=== PATIENT | male | born 1945 | race Caucasian/White ===

== ENCOUNTER 2017-10-08 11:06 | Emergency (ER) | payer OTHER ==
[2017-10-08 12:16] LABS: BASOPHIL % 0.5 % (0-2); PLATELET COUNT 273 x10^3mcL (130-400); RED CELL DISTRIBUTION WIDTH 13.9 % (11.5-14.5)
[2017-10-08 12:26] LABS: CALCIUM 9.7 mg/dL (8.5-10.1); CARBON DIOXIDE 36.3 mmol/L (21-32); CHLORIDE SERUM 98 mmol/L (98-107); CREATININE SERUM 0.8 mg/dL (0.7-1.3); GLUCOSE SERUM 118 mg/dL (74-106); POTASSIUM SERUM 3.6 mmol/L (3.5-5.1); SODIUM SERUM 142 mmol/L (136-145)
[2017-10-08 12:30] LABS: ALBUMIN 3.5 g/dL (3.4-5.0); ALKALINE PHOSPHATASE 82 U/L (46-116); ALT/SGPT 32 U/L (16-63); AST/SGOT 26 U/L (15-37); BILIRUBIN TOTAL 0.88 mg/dL (0.20-1.00); CHOLESTEROL 148 mg/dL (<200); HDL CHOLESTEROL 48 mg/dL (40-60); TOTAL PROTEIN, SERUM 7.9 g/dL (6.4-8.2)
[2017-10-08 13:55] VITALS: BP 131/94
== END 2017-10-08 13:56 | disposition home or self-care (01) ==
LOC: ED 11:06
PROVIDERS: Emergency Medicine
DX: J44.1 Chronic obstructive pulmonary disease with (acute) exacerbation (principal); R19.7 Diarrhea, unspecified; R86.0 Abnormal level of enzymes in specimens from male genital organs; J04.0 Acute laryngitis; E78.00 Pure hypercholesterolemia, unspecified
CPT/HCPCS: 36600; 83880; 87804; J2930; J7030; J7613; Q0092